=== PATIENT | male | born 1955 | race Hispanic/Latino ===

== ENCOUNTER → 2022-02-23 | Outpatient (CLI) | payer MEDICARE | LOC: US 09:09 | PROVIDERS: ATTEND Urology | DX: N45.3 Epididymo-orchitis (principal) | CPT/HCPCS: 76870; 93976 ==

== ENCOUNTER 2022-09-06 10:43 | Outpatient (RCR) | payer MEDICARE | END 2022-09-26 | LOC: PT 10:43 | PROVIDERS: ATTEND Specialist | DX: S46.091A Other injury of muscle(s) and tendon(s) of the rotator cuff of right shoulder, initial encounter (principal) ==